=== PATIENT | male | born 1950 | race Caucasian/White ===

== ENCOUNTER → 2019-06-21 | Outpatient (CLI) | payer MEDICARE, MEDICAID, OTHER ==
[~2019-06-21] MED LIST: ATOR40TA78 PO; DOCU-131 PO; PHEN100C PO; TAMS-11 PO
[2019-06-21 13:07] LABS: CHLORIDE 105 mmol/L (98-107)
[2019-06-21 13:18] LABS: ALANINE AMINOTRANSFERASE 12 U/L (12-78); ALKALINE PHOSPHATASE 91 U/L (45-117); ANION GAP 2 mmol/L (5-15); BILIRUBIN,TOTAL 0.5 mg/dL (0.2-1.0); CALCIUM 9.5 mg/dL (8.5-10.1); CHOL/HDL RATIO 3.9; CHOLESTEROL, TOTAL 303 mg/dL (140-239); CREATININE 1.13 mg/dL (0.7-1.3); HDL CHOL % 25 % (26-37); HDL CHOLESTEROL (DIRECT) 77 mg/dL (40-60); LDL CHOLESTEROL,CALCULATED 201 mg/dL (54-169); LDL/HDL RATIO 2.6 (0.5-3.0); TOTAL PROTEIN 7.5 g/dL (6.4-8.2); TRIGLYCERIDES 125 mg/dL (50-200); VLDL CHOLESTEROL 25 mg/dL (0-25)
== END | disposition home or self-care (01) ==
LOC: CFH 07:55
PROVIDERS: ATTEND Registered Nurse
DX: I08.2 Rheumatic disorders of both aortic and tricuspid valves (principal); E78.00 Pure hypercholesterolemia, unspecified; I48.0 Paroxysmal atrial fibrillation
CPT/HCPCS: 36415; 80053; 80061; 93306; 93356

== ENCOUNTER 2020-02-09 13:40 | Inpatient (IN) | payer MEDICARE, MEDICAID, OTHER ==
[~2020-02-09] VITALS: Ht 185.4 cm; Wt 71.6 kg
[2020-02-09] MEDS ORDERED: LORazepam 2 MG/ML, 1ML ONE (13:50)
--- NOTE | 2020-02-09 13:52 | NUR ---
PT BIB [facility] FROM HOME. PT LAST SEEN NORMAL LAST NIGHT AT 2030 BY FAMILY. THIS MORNING PT HAD A SEIZURE WITNESSED BY FAMILY AT 0730 LASTING FOR 30 SECONDS. AFTERWARDS PT WAS ALTERED. PT IS A&OX0. PT IS TRYING TO CLIMB OUT OF BED. PT ARRIVED IN RESTRAINTS. DR BEAULIEU HAS SEEN PATIENT. EKG DONE. VS STABLE. [employer]MENT INST[employer]ER ON. NSR NOTED. REPORT GIVEN TO ROSALINDA YAN. PT TO BE MOVED TO T3
[2020-02-09] MEDS ORDERED: SODIUM CHLORIDE FLUSH 10ML SYR IVF ONE (14:00)
[2020-02-09] MEDS ORDERED: LORazepam 2 MG/ML, 1ML IVPush ONE (14:00)
--- NOTE | 2020-02-09 14:03 | NUR ---
ASSUMED CARE AT THIS TIME.
--- NOTE | 2020-02-09 14:04 | NUR ---
ASSISTING LAB AT BEDSIDE FOR DRAW.
[2020-02-09] MEDS ORDERED: MIDAZOLAM 1 MG/ML, 2ML ONE (14:07)
[2020-02-09 14:17] LABS: MEAN CORPUSCULAR HEMOGLOBIN 29.9 pg (27.5-34.5); MEAN CORPUSCULAR HGB CONC 32.5 g/dL (33.2-36.2); MEAN PLATELET VOLUME 7.3 fL (7.4-10.4); PLATELET COUNT 267 x10^3/uL (130-400); RED BLOOD COUNT 4.39 x10^6/uL (4.38-5.82); RED CELL DISTRIBUTION WIDTH 13.7 % (9.4-14.8)
[2020-02-09 14:29] LABS: ALANINE AMINOTRANSFERASE 19 U/L (12-78); ALBUMIN 3.9 g/dL (3.4-5.0); ANION GAP 7 mmol/L (5-15); CALCIUM 8.8 mg/dL (8.5-10.1); CHLORIDE 89 mmol/L (98-107); CREATININE 1.02 mg/dL (0.7-1.3)
[2020-02-09] MEDS ORDERED: MIDAZOLAM 1 MG/ML, 2ML IVPush ONE (14:30)
[2020-02-09 14:31] LABS: ALKALINE PHOSPHATASE 76 U/L (45-117); BILIRUBIN,TOTAL 0.8 mg/dL (0.2-1.0)
--- NOTE | 2020-02-09 14:43 | NUR ---
pT GIVEN VERSED PRIOR TO CT, PT CTA COMPLETED, BACK TO TRAUMA 3 NO COMPLICATIONS. PT RESTRAINTS REDCUED TO 2 POINT.
[2020-02-09] MEDS ORDERED: OMNIPAQUE 350 MG/ML, 75ML BOTTLE ONE (14:49)
[2020-02-09 15:22] LABS: BASOPHILS # (AUTO) 0.01 x10^3/uL (0-0.1); BASOPHILS % (AUTO) 0 % (0-1); EOSINOPHILS % (AUTO) 0 % (1-7); LYMPHOCYTES # (AUTO) 0.83 x10^3/uL (1-3.4); LYMPHOCYTES % (AUTO) 6 % (22-44); MD SCAN; MONOCYTES # (AUTO) 1.13 x10^3/uL (0.2-0.8); MONOCYTES % (AUTO) 8 % (2-9); NEUTROPHILS # (AUTO) 13.13 x10^3/uL (1.8-6.8); NEUTROPHILS % (AUTO) 87 % (42-75)
[2020-02-09] MEDS: SODIUM CHLORIDE 0.9% 100 ML IV SCH ×3 (15:24→18:10)
--- NOTE | 2020-02-09 15:25 | NUR ---
CONDOM CATH APPLIED, NOTIFIED OF LOW NA IN PATIENT. IV 0.9NS @75MLS/HR ORDERED
--- NOTE | 2020-02-09 15:31 | NUR ---
LOCKING LIMB RESTRAINTS REMOVED, PT PLACED IN 2 POINT RESTRAINTS.
[2020-02-09 15:33] LABS: AMPHETAMINE SCREEN, URINE Negative (Negative); BARBITURATE SCREEN, URINE Negative (Negative); BENZODIAZEPINE SCREEN, URINE Positive (Negative); CANNABINOID SCREEN, URINE Negative (Negative); COCAINE SCREEN, URINE Negative (Negative); METHADONE SCREEN, URINE Negative (Negative); OPIATE SCREEN, URINE Negative (Negative); SODIUM,URINE RANDOM 43 mmol/L
--- NOTE | 2020-02-09 15:40 | NUR ---
Lab called to come draw peripheral blood cultures so that abx therapy can be started.
[2020-02-09 15:56] LABS: OSMOLALITY,URINE 264 mOsm/kg (500-850)
[2020-02-09] MEDS ORDERED: CEFTRIAXONE PMX 2GM/50ML 50 ML IV SCH (16:00)
[2020-02-09] MEDS ORDERED: CEFTRIAXONE PMX 2GM/50ML 50 ML ONE (16:06)
[2020-02-09 16:07] LABS: MICROSCOPIC NOT IND
--- NOTE | 2020-02-09 16:28 | NUR ---
Pt is able to protect airway and is clearing secretions. Pt snoring loudly at this time.
[2020-02-09] MEDS ORDERED: FILTER 0.22 MICRON IV ONE (17:00)
[2020-02-09] MEDS ORDERED: PHENYTOIN SODIUM 1,000 MG in SODIUM CHLORIDE 0.9% 100 ML IV ONE (17:00)
--- NOTE | 2020-02-09 17:11 | NUR ---
COVID-19 completed and walked to lab.
[2020-02-09 17:29] LABS: ANION GAP 6 mmol/L (5-15); CALCIUM 8.3 mg/dL (8.5-10.1); CHLORIDE 93 mmol/L (98-107); CREATININE 0.89 mg/dL (0.7-1.3)
[2020-02-09] MEDS: SODIUM CHLORIDE 0.9% 1,000 ML IV SCH (17:31)
[2020-02-09 17:56] LABS: TROPONIN I < 0.015 ng/mL (0.000-0.045)
[2020-02-09] MEDS ORDERED: HALOPERIDOL 5 MG/ML IVPush PRN (18:00)
[2020-02-09] MEDS ORDERED: ENALAPRILAT 1.25 MG/ML, 2ML IVPush PRN (18:00)
[2020-02-09] MEDS ORDERED: ONDANSETRON 2MG/ML, 2ML IVPush PRN (18:00)
[2020-02-09] MEDS ORDERED: ACETAMINOPHEN 325 MG TABLET PO PRN (18:00)
[2020-02-09] MEDS ORDERED: LORazepam 1MG TABLET PO PRN (18:00)
--- NOTE | 2020-02-09 18:13 | NUR ---
Brother Romaroi Mcleod [phone] [id number] Elida [phone]
--- NOTE | 2020-02-09 19:50 | NUR ---
REPORT TO MARY TELLEZ
[2020-02-09 20:31] VITALS: BP 156/74
[2020-02-10 00:12] LABS: ANION GAP 7 mmol/L (5-15); CALCIUM 8.7 mg/dL (8.5-10.1); CHLORIDE 94 mmol/L (98-107); CREATININE 1.02 mg/dL (0.7-1.3)
[2020-02-10] MEDS: PHENYTOIN 125 MG/5 ML ORAL SUSP PO SCH ×3 (00:38→17:15)
[2020-02-10 00:50] VITALS: BP 139/82
[2020-02-10 02:25] LABS: ANION GAP 7 mmol/L (5-15); CALCIUM 8.7 mg/dL (8.5-10.1); CHLORIDE 97 mmol/L (98-107); CREATININE 0.92 mg/dL (0.7-1.3)
[2020-02-10 02:39] LABS: BASOPHILS # (AUTO) 0.03 x10^3/uL (0-0.1); BASOPHILS % (AUTO) 0 % (0-1); EOSINOPHILS % (AUTO) 0 % (1-7); LYMPHOCYTES % (AUTO) 11 % (22-44); MD NO; MEAN CORPUSCULAR HEMOGLOBIN 29.4 pg (27.5-34.5); MEAN CORPUSCULAR HGB CONC 31.8 g/dL (33.2-36.2); MEAN PLATELET VOLUME 7.5 fL (7.4-10.4); MONOCYTES # (AUTO) 1.28 x10^3/uL (0.2-0.8); MONOCYTES % (AUTO) 11 % (2-9); NEUTROPHILS # (AUTO) 8.96 x10^3/uL (1.8-6.8); NEUTROPHILS % (AUTO) 77 % (42-75); PLATELET COUNT 248 x10^3/uL (130-400); RED BLOOD COUNT 4.33 x10^6/uL (4.38-5.82); RED CELL DISTRIBUTION WIDTH 13.5 % (9.4-14.8)
[2020-02-10 02:51] LABS: INTERNATIONAL NORMALIZED RATIO 0.99 (0.93-1.1); PROTHROMBIN TIME 10.2 Seconds (9.6-11.5)
[2020-02-10 03:03] LABS: D-DIMER 2.38 ug/mlFEU (0.00-0.52)
[2020-02-10 07:58] VITALS: BP 126/76
[2020-02-10] MEDS ORDERED: PHENYTOIN 125 MG/5 ML ORAL SUSP PO SCH (09:00)
[2020-02-10] MEDS: TAMSULOSIN 0.4 MG CAP.ER.24H PO SCH (09:45)
[2020-02-10] MEDS: SODIUM CHLORIDE 0.9% 1,000 ML IV SCH (10:52)
[2020-02-10 12:30] VITALS: BP 117/72
[2020-02-10 15:59] LABS: ANION GAP 6 mmol/L (5-15); CHLORIDE 107 mmol/L (98-107); CREATININE 1.17 mg/dL (0.7-1.3)
[2020-02-10 19:38] VITALS: BP 125/74
[2020-02-11] MEDS: PHENYTOIN 125 MG/5 ML ORAL SUSP PO SCH ×3 (00:27→17:09)
[2020-02-11] MEDS: SODIUM CHLORIDE 0.9% 1,000 ML IV SCH (00:30)
[2020-02-11 02:53] VITALS: BP 127/69
[2020-02-11 05:48] LABS: BASOPHILS % (AUTO) 1 % (0-1); EOSINOPHILS % (AUTO) 2 % (1-7); LYMPHOCYTES % (AUTO) 21 % (22-44); MEAN CORPUSCULAR HEMOGLOBIN 29.8 pg (27.5-34.5); MEAN CORPUSCULAR HGB CONC 33.2 g/dL (33.2-36.2); MEAN PLATELET VOLUME 7.8 fL (7.4-10.4); MONOCYTES % (AUTO) 15 % (2-9); NEUTROPHILS % (AUTO) 63 % (42-75); PLATELET COUNT 262 x10^3/uL (130-400); RED BLOOD COUNT 4.49 x10^6/uL (4.38-5.82); RED CELL DISTRIBUTION WIDTH 13.8 % (9.4-14.8)
[2020-02-11 05:55] LABS: ALBUMIN 3.4 g/dL (3.4-5.0); ANION GAP 6 mmol/L (5-15); CALCIUM 8.8 mg/dL (8.5-10.1); CHLORIDE 107 mmol/L (98-107)
[2020-02-11 06:00] LABS: ALANINE AMINOTRANSFERASE 21 U/L (12-78); ALKALINE PHOSPHATASE 65 U/L (45-117); BILIRUBIN,TOTAL 0.3 mg/dL (0.2-1.0); CREATININE 0.87 mg/dL (0.7-1.3); TOTAL PROTEIN 6.5 g/dL (6.4-8.2)
[2020-02-11 06:04] LABS: MD NO
[2020-02-11] MEDS ORDERED: POTASSIUM CHLORIDE 40 MEQ in SODIUM CHLORIDE 0.9% 500 ML IV ONE (07:00)
[2020-02-11 07:16] VITALS: BP 132/75
[2020-02-11] MEDS: TAMSULOSIN 0.4 MG CAP.ER.24H PO SCH (09:38)
[2020-02-11 12:06] VITALS: BP 117/72
[2020-02-11] MEDS ORDERED: SODIUM CHLORIDE 0.9% 1,000 ML IV SCH (17:31)
[2020-02-11 18:39] VITALS: BP 121/70
[2020-02-12 00:22] VITALS: BP 139/86
[2020-02-12] MEDS: PHENYTOIN 125 MG/5 ML ORAL SUSP PO SCH ×3 (01:59→16:28)
[2020-02-12 06:17] LABS: BASOPHILS % (AUTO) 1 % (0-1); EOSINOPHILS % (AUTO) 3 % (1-7); LYMPHOCYTES % (AUTO) 25 % (22-44); MEAN CORPUSCULAR HEMOGLOBIN 29.7 pg (27.5-34.5); MEAN CORPUSCULAR HGB CONC 32.7 g/dL (33.2-36.2); MEAN PLATELET VOLUME 7.8 fL (7.4-10.4); MONOCYTES % (AUTO) 11 % (2-9); NEUTROPHILS % (AUTO) 60 % (42-75); PLATELET COUNT 266 x10^3/uL (130-400); RED BLOOD COUNT 4.57 x10^6/uL (4.38-5.82)
[2020-02-12 06:22] LABS: ANION GAP 3 mmol/L (5-15); CALCIUM 9.3 mg/dL (8.5-10.1); CHLORIDE 104 mmol/L (98-107)
[2020-02-12 06:24] LABS: CREATININE 1.07 mg/dL (0.7-1.3)
[2020-02-12 06:39] LABS: MD NO
[2020-02-12 06:43] VITALS: BP 122/73
[2020-02-12] MEDS: TAMSULOSIN 0.4 MG CAP.ER.24H PO SCH (07:59)
[2020-02-12 12:03] VITALS: BP 110/74
[2020-02-12 18:45] VITALS: BP 125/80
[2020-02-12 22:36] VITALS: BP 133/84
[2020-02-13 00:19] VITALS: BP 128/79
[2020-02-13] MEDS: PHENYTOIN 125 MG/5 ML ORAL SUSP PO SCH ×3 (01:03→18:25)
[2020-02-13 07:47] VITALS: BP 115/66
[2020-02-13 08:18] LABS: ANION GAP 6 mmol/L (5-15); CALCIUM 8.9 mg/dL (8.5-10.1); CHLORIDE 103 mmol/L (98-107); CREATININE 0.98 mg/dL (0.7-1.3)
[2020-02-13] MEDS: TAMSULOSIN 0.4 MG CAP.ER.24H PO SCH (11:00)
[2020-02-13 15:43] VITALS: BP 99/62
[2020-02-13 20:22] VITALS: BP 105/67
[2020-02-14 01:32] VITALS: BP 135/74
[2020-02-14] MEDS: PHENYTOIN 125 MG/5 ML ORAL SUSP PO SCH ×3 (03:17→17:44)
[2020-02-14 08:20] VITALS: BP 108/64
[2020-02-14] MEDS: TAMSULOSIN 0.4 MG CAP.ER.24H PO SCH (10:37)
[2020-02-14 14:35] VITALS: BP 96/61
[2020-02-14 19:44] VITALS: BP 120/80
[2020-02-15 00:50] VITALS: BP 116/68
[2020-02-15] MEDS: PHENYTOIN 125 MG/5 ML ORAL SUSP PO SCH ×3 (03:10→22:58)
[2020-02-15 06:19] LABS: BASOPHILS % (AUTO) 1 % (0-1); EOSINOPHILS % (AUTO) 5 % (1-7); LYMPHOCYTES % (AUTO) 29 % (22-44); MEAN CORPUSCULAR HEMOGLOBIN 29.9 pg (27.5-34.5); MEAN CORPUSCULAR HGB CONC 32.8 g/dL (33.2-36.2); MEAN PLATELET VOLUME 7.2 fL (7.4-10.4); MONOCYTES % (AUTO) 10 % (2-9); NEUTROPHILS % (AUTO) 55 % (42-75); PLATELET COUNT 266 x10^3/uL (130-400); RED CELL DISTRIBUTION WIDTH 14.2 % (9.4-14.8)
[2020-02-15 06:33] LABS: ANION GAP 5 mmol/L (5-15); CALCIUM 8.8 mg/dL (8.5-10.1); CHLORIDE 105 mmol/L (98-107); CREATININE 0.98 mg/dL (0.7-1.3)
[2020-02-15 06:46] LABS: MD NO
[2020-02-15 07:19] VITALS: BP 127/65
[2020-02-15] MEDS: TAMSULOSIN 0.4 MG CAP.ER.24H PO SCH (08:56)
[2020-02-15 14:34] VITALS: BP 109/66
[2020-02-15 19:17] VITALS: BP 115/72
[2020-02-16 01:06] VITALS: BP 92/58
[2020-02-16] MEDS: PHENYTOIN 125 MG/5 ML ORAL SUSP PO SCH ×3 (06:02→21:24)
[2020-02-16 08:46] VITALS: BP 106/62
[2020-02-16] MEDS: TAMSULOSIN 0.4 MG CAP.ER.24H PO SCH (09:48)
[2020-02-16 12:07] VITALS: BP 108/67
[2020-02-16 19:33] VITALS: BP 105/61
[2020-02-17] MEDS: PHENYTOIN 125 MG/5 ML ORAL SUSP PO SCH ×3 (05:18→20:23)
[2020-02-17 07:12] VITALS: BP 114/71
[2020-02-17] MEDS: TAMSULOSIN 0.4 MG CAP.ER.24H PO SCH (08:29)
[2020-02-17 15:00] VITALS: BP 104/65
[2020-02-17 20:06] VITALS: BP 115/68
[2020-02-18 00:05] VITALS: BP 125/72
[2020-02-18] MEDS: PHENYTOIN 125 MG/5 ML ORAL SUSP PO SCH ×3 (06:02→23:14)
[2020-02-18 07:01] VITALS: BP 107/67
[2020-02-18] MEDS: TAMSULOSIN 0.4 MG CAP.ER.24H PO SCH (08:54)
[2020-02-18 12:44] VITALS: BP 105/66
[2020-02-18 19:18] VITALS: BP 109/64
[2020-02-19 00:16] VITALS: BP 109/67
[2020-02-19] MEDS: PHENYTOIN 125 MG/5 ML ORAL SUSP PO SCH ×3 (05:52→20:39)
[2020-02-19 08:13] VITALS: BP 101/64
[2020-02-19] MEDS: TAMSULOSIN 0.4 MG CAP.ER.24H PO SCH (09:49)
[2020-02-19 13:56] VITALS: BP 104/66
[2020-02-19 18:50] VITALS: BP 105/62
[2020-02-20 01:17] VITALS: BP 110/66
[2020-02-20] MEDS: PHENYTOIN 125 MG/5 ML ORAL SUSP PO SCH ×3 (06:15→21:27)
[2020-02-20 07:51] VITALS: BP 93/53
[2020-02-20] MEDS: TAMSULOSIN 0.4 MG CAP.ER.24H PO SCH (09:37)
[2020-02-20 12:23] VITALS: BP 99/65
[2020-02-20 18:26] VITALS: BP 104/58
[2020-02-21 01:49] VITALS: BP 110/63
[2020-02-21] MEDS: PHENYTOIN 125 MG/5 ML ORAL SUSP PO SCH ×3 (05:40→21:07)
[2020-02-21] MEDS: TAMSULOSIN 0.4 MG CAP.ER.24H PO SCH (07:20)
[2020-02-21 08:02] VITALS: BP 110/72
[2020-02-21 13:10] VITALS: BP 113/68
[2020-02-21 19:17] VITALS: BP 106/66
[2020-02-22 00:57] VITALS: BP 103/54
[2020-02-22] MEDS: PHENYTOIN 125 MG/5 ML ORAL SUSP PO SCH ×3 (05:24→21:37)
[2020-02-22] MEDS: TAMSULOSIN 0.4 MG CAP.ER.24H PO SCH (08:44)
[2020-02-22 08:52] VITALS: BP 101/65
[2020-02-22 14:23] VITALS: BP 111/62
[2020-02-22 18:19] VITALS: BP 115/70
[2020-02-23] MEDS: PHENYTOIN 125 MG/5 ML ORAL SUSP PO SCH ×3 (06:29→21:36)
[2020-02-23 08:33] VITALS: BP 110/69
[2020-02-23] MEDS: TAMSULOSIN 0.4 MG CAP.ER.24H PO SCH (09:20)
[2020-02-23 13:50] VITALS: BP 110/70
[2020-02-23 19:38] VITALS: BP 117/72
[2020-02-24 02:30] VITALS: BP 124/69
[2020-02-24] MEDS: PHENYTOIN 125 MG/5 ML ORAL SUSP PO SCH ×3 (06:13→22:35)
[2020-02-24] MEDS: TAMSULOSIN 0.4 MG CAP.ER.24H PO SCH (09:03)
[2020-02-24 09:07] VITALS: BP 109/66
[2020-02-24 13:17] VITALS: BP 121/75
[2020-02-24 19:00] VITALS: BP_SYST 104; BP_SYST 98; BP_DIAS 64; BP_DIAS 65
[2020-02-25 02:20] VITALS: BP 120/77
[2020-02-25] MEDS: PHENYTOIN 125 MG/5 ML ORAL SUSP PO SCH ×3 (05:49→20:51)
[2020-02-25] MEDS: TAMSULOSIN 0.4 MG CAP.ER.24H PO SCH (10:13)
[2020-02-25 10:19] VITALS: BP 116/72
[2020-02-25 12:47] VITALS: BP 116/74
[2020-02-25 20:12] VITALS: BP 115/71
[2020-02-25 23:08] VITALS: BP 126/75
[2020-02-26 00:34] VITALS: BP 119/68
[2020-02-26] MEDS: PHENYTOIN 125 MG/5 ML ORAL SUSP PO SCH ×3 (06:22→22:12)
[2020-02-26 07:26] VITALS: BP 117/71
[2020-02-26] MEDS ORDERED: SENNA/DOCUSATE TABLET PO PRN (09:30)
[2020-02-26] MEDS: TAMSULOSIN 0.4 MG CAP.ER.24H PO SCH (09:30)
[2020-02-26] MEDS ORDERED: FLU VACC QS2020-21(6MOS UP)/PF 60MCG/0.5 ML SYR IM-VACC ONE (12:00)
[2020-02-26 12:50] VITALS: BP 118/72
[2020-02-26 21:38] VITALS: BP 137/79
[2020-02-26 23:54] VITALS: BP 97/62
[2020-02-27] MEDS: PHENYTOIN 125 MG/5 ML ORAL SUSP PO SCH (06:20)
[2020-02-27 08:53] VITALS: BP 122/72
[2020-02-27] MEDS: TAMSULOSIN 0.4 MG CAP.ER.24H PO SCH (09:40)
== END 2020-02-27 11:33 | DRG 101 ==
LOC: SUATTDRO 16:39 → ED 17:25 → EDIP 17:31 → ED 17:34 → 4EST 20:26 → 3N 02-12 22:30 → 5SO 02-24 18:44
PROVIDERS: ADMIT Hospitalist; ATTEND Internal Medicine
PROC: 0T9B70Z Drainage of Bladder with Drainage Device, Via Natural or Artificial Opening (ICD-10-PCS; principal; 2020-02-09)
DX: G40.901 Epilepsy, unspecified, not intractable, with status epilepticus (principal); E87.1 Hypo-osmolality and hyponatremia; I69.954 Hemiplegia and hemiparesis following unspecified cerebrovascular disease affecting left non-dominant side; Z20.828 Contact with and (suspected) exposure to other viral communicable diseases; E86.0 Dehydration; D64.9 Anemia, unspecified; G93.89 Other specified disorders of brain; Z95.0 Presence of cardiac pacemaker; Z90.81 Acquired absence of spleen; Z88.8 Allergy status to other drugs, medicaments and biological substances; Z87.820 Personal history of traumatic brain injury; Z87.891 Personal history of nicotine dependence
CPT/HCPCS: 36415; 70450; 70496; 70498; 70551; 71045; 80048; 80053; 80185; 80307; 81003; 82140; 82728; 83605; 83615; 83735; 83930; 83935; 84100; 84145; 84300; 84443; 84484; 85025; 85379; 85610; 86140; 87040; 87070; 87205; 87635; 90686; 93005; 96365; 96366; 96375; G0378; J0696; J1165; J2250; J3480; Q9967; J2060; J7030; J7040